=== PATIENT | female | born 1965 | race Caucasian/White ===

== ENCOUNTER → 2016-07-23 | Outpatient (CLI) | payer MEDICARE, BC | END | disposition disaster alternative care site (69) | LOC: LFPA 11:37 | DX: N39.0 Urinary tract infection, site not specified (principal) ==

== ENCOUNTER → 2016-08-28 | Outpatient (CLI) | payer MEDICARE | END | disposition disaster alternative care site (69) | LOC: GBCOE 08:54 | DX: Z12.31 Encounter for screening mammogram for malignant neoplasm of breast (principal) | CPT/HCPCS: G0202 ==